=== PATIENT | male | born 1950 | race Caucasian/White ===

== ENCOUNTER 2017-04-23 07:39 | Day surgery (SDC) | payer MEDICARE, BC ==
[~2017-04-23] VITALS: Ht 172.7 cm; Wt 85.0 kg
[~2017-04-23 07:39] MED LIST: 1-ME1LIQ PO; ALLO100T PO; ECOT81TA2; ENAL10TA7 PO; EZET10; METO25 PO; NITR.4
[2017-04-23] MEDS ORDERED: IOHEXOL 350 MG/ML 100 ML BTL (for Cath Lab) OTHER ONE (07:40)
[2017-04-23] MEDS ORDERED: NS 1000P @30 MLS/HR (KVO) IV SCH (08:00)
[2017-04-23 08:21] VITALS: BP 135/76; PULSE 67; RESP 18; TEMP 97.7; O2SAT 98
[2017-04-23 08:23] LABS: AUTOMATED NEUTROPHIL # 2.9 TH/MM3 (1.8-7.7); BASOPHIL % 0.5 % (0.0-2.0); EOSINOPHIL # 0.4 TH/MM3 (0-0.4); EOSINOPHIL % 7.3 % (0.0-4.0); HEMATOCRIT 39.7 % (39.0-51.0); HEMO FLAGS DIFF FINAL; LYMPH % 23.8 % (9.0-44.0); LYMPHOCYTE # 1.2 TH/MM3 (1.0-4.8); MEAN CELL VOLUME 92.4 FL (80.0-100.0); MEAN CORPUSCULAR HEMOGLOBIN 32.4 PG (27.0-34.0); MONO % 9.2 % (0.0-8.0); NEUT % 59.2 % (16.0-70.0); PLATELET COUNT 160 TH/MM3 (150-450); RED BLOOD COUNT 4.29 MIL/MM3 (4.50-5.90); RED CELL DISTRIBUTION WIDTH 13.2 % (11.6-17.2); WHITE BLOOD COUNT 4.9 TH/MM3 (4.0-11.0)
[2017-04-23] MEDS ORDERED: ATOR10TA15 PO (08:24)
[2017-04-23] MEDS ORDERED: NITR0.4S SL (08:24)
[2017-04-23] MEDS ORDERED: ASPI81TA23 PO (08:24)
[2017-04-23] MEDS ORDERED: LORA0.5T PO (08:24)
[2017-04-23] MEDS ORDERED: CLOP75TA PO (08:24)
[2017-04-23] MEDS ORDERED: METO25TA3 PO (08:24)
[2017-04-23] MEDS ORDERED: ALLO100T PO (08:24)
[2017-04-23] MEDS ORDERED: ENAL10TA PO (08:24)
[2017-04-23 08:33] LABS: APTT (PATIENT) 29.4 SEC (24.3-30.1); PROTHROMBIN TIME - PATIENT 10.7 SEC (9.8-11.6)
[2017-04-23 08:41] LABS: BICARBONATE 28.5 MEQ/L (21.0-32.0); POTASSIUM 4.3 MEQ/L (3.5-5.1)
[2017-04-23] MEDS ORDERED: diphenhydrAMINE HCL 50 MG/ML VIAL IV PUSH ONE (09:30)
[2017-04-23] MEDS ORDERED: FAMOTIDINE 20 MG/2 ML VIAL IV PUSH ONE (09:30)
[2017-04-23] MEDS ORDERED: methylPREDNISolone SOD SUCC 125 MG/2 ML VIAL IV PUSH ONE (09:30)
[2017-04-23] MEDS ORDERED: HEPARIN-NS/PF INJ 1,000 ML ONE (10:33)
[2017-04-23] MEDS ORDERED: MIDAZOLAM HCL 2 MG/2 ML VIAL ONE (10:42)
[2017-04-23] MEDS ORDERED: HEPARIN SODIUM - IV 10,000 UNITS/10 ML VIAL ONE (11:47)
--- NOTE | 2017-04-23 12:23 | CATHPROC ---
[employer] HIS Report Study Information Study Number Admission Scheduled Start Study Start [id number] Apr 23 2017 7:39AM 04/23/2017 Apr 23 2017 10:28AM [place] [facility] Catheter[facility] Admit Source Facility Department Other [facility] - Associate Counsel Physician and Clinical Staff Initial Cuong Sanon Edge Inker Uppers Maddie Segovia,RN Recorder Christopher Connor,RT(R) Scrub Sal Russell RCIS(BS) Procedures Performed Procedure Location (Site) Vessel Name Coronary Angiograms LCA Left Coronary Coronary Angiograms RCA Right Coronary Coronary Angiograms SVG-OM CIRC Coronary Angiograms SVG-PDA Right Coronary Coronary Angiograms Gft. Stump 1 SVG Graft Coronary Angiograms WHELAN WHELAN L Heart Cath Wire insertion Fem Art (right) Femoral Art Equipment Time Environmental Services Manager Description Size Mfg Part Number Used/Scraped TRANSDUCER, TRUWAVE [id number] 10:43 Puuilo * Used W/FREDERICK *[id number] INTRODUCER SET, [id number] 11:10 [employer] FR 5 Used MICROPUNCTURE *[id number] 534-545T *[id number] 534-560T *[id number] 534-520T *[id number] 534-521T *[id number] 534-542T *[id number] 10:43 Maximum Balance Foundation PACK, CCL CUSTOM * Used *[id number] 11:48 MEDTRONIC/AVE EBU 3.5 Z2 GUIDE CATHETER FR 6 Used *[id number] 11:48 [employer] MEDICAL PACK, ANGIOPLASTY * [id number] Used [id number] 10:43 [employer] MEDICAL WIRE, 3MMJ .035 180CM 180CM Used *[id number] 10:43 NAMIC MANIFOLD, 4 PORT * Used *[id number] 10:43 NYCOMED OMNIPAQUE, 350 MG, 150ML 150ML [id number] Used [id number] 10:43 GOYAL MEDICAL BLANKET,WARM AIR CCL * Used *[id number] 10:45 TERUMO MEDICAL SHEATH, FR5 TERUMO (10CM) FR 5 Used *[id number] 11:46 TERUMO MEDICAL SHEATH, FR6 TERUMO (10CM) FR 6 Used *[id number] 11:49 [employer] PRIME WIRE, VERRATA 185CM 185CM 04297 *[id number] Used Equipment Model, Serial, Lot Number and Expiration Data Description Model Number Serial Number Lot Number Expiration Date PACK, ANGIOPLASTY [id number] 06-25-2019 PRIME WIRE, VERRATA 185CM [id number] 02-23-2020 History: Allergies Allergy Reaction iohexol Hives diatrizoate meglumine Hives gadoteridol Hives gadodiamide Hives iodixanol Hives gadobenic acid Hives History: Risk Factors Family History of Hypertension Dyslipidemia Premature CAD Yes Yes Yes Prior PCI Prior PCIDate Prior CABG Prior CABGDate Yes 02/27/2016 Yes 05/26/2006 Cerebrovascular Peripheral Artery Chronic Lung On Dialysis Diabetes Disease Disease Disease No No No No No History: Stress Tests Stress or Imaging Studies Performed Yes Standard Exercise Stress Test No Stress Echo No Stress Test SPECT Stress Test SPECT Result Stress Test SPECT Ischemia Risk/Extent Yes Positive Intermediate Stress Test CMR No Cardiac CTA Coronary Calcium Score No No History: Other Current Smoker No Labs Hgb (g/dl) Hct (%) WBC (l/cumm) Platelets (thousands) 11.60-17.00 35.00-51.00 4.00-11.00 150.00-450.00 13.9 39.7 4.9 160 Glucose (mg/dl) BUN (mg/dl) Creatinine (mg/dl) BUN:Creatinine (1:x) 74.00-106.00 7.00-18.00 0.50-1.30 10.00-20.00 101 11 0.9 12.2 Na (meq/l) K (meq/l) 136.00-145.00 3.50-5.10 139 4.3 INR (PTT:PT) 0.90-1.10 1 CPK-MB (ng/ML) 0.50-3.60 Not Drawn Medication Medication Total Dose (Bolus/Oral) Medication Total Dosage/Unit 1% XYLOCAINE 10 mL FENTANYL 25 mcg HEPARIN 6000 units PEPCID 20 mg VERSED 0.5 mg Medications (Bolus/Oral) Medication Time Given Dosage/Unit Administered By Reason 04/23/2017 10:33:33 PEPCID 20 mg Maddie Segovia AM 20 mg PEPCID given in lab by Maddie Segovia, RN via Peripheral IV. Ordered by Cuong Canales 04/23/2017 11:07:35 VERSED 0.5 mg Adamy, Maddie AM 0.5 mg VERSED given in lab by Maddie Segovia, AMIRA in Left Antecubital via Peripheral IV. Ordered by Cuong Singh 04/23/2017 11:08:50 FENTANYL 25 mcg Maddie Segovia AM 25 mcg FENTANYL given in lab by Maddie Segovia, AMIRA in Left Antecubital via Peripheral IV. Ordered by Cuong Canales 04/23/2017 11:08:54 1% XYLOCAINE 10 mL Cuong Canales AM 10 mL 1% XYLOCAINE given in lab by Cuong Canales in Right Groin via Subcutaneous. Ordered by Cuong Hudson 04/23/2017 11:50:02 HEPARIN 6000 units Maddie Segovia AM 6000 units HEPARIN given in lab by Maddie Segovia, AMIRA in Left Antecubital via Peripheral IV. Ordered by Cuong Canales Medication (Drip) Medication Time Given Dosage/Unit Concentration/Unit Diluent (ml) Solution 04/23/2017 10:41:35 IV Solutions 0 mL (IV) 500 NaCl .9 AM Patient arrived on IV Solutions in Left Antecubital via Peripheral IV. Pump/Drip Flow = 20 ml/hr usin g NaCl .9. Initial Case Assessment Cardiovascular HR Rhythm NIBP Chest Pain 80 SR 159/88 0 Edema Present Skin color Skin None Normal Warm Dry Circulatory - Right Pulses Dorsalis Pedis Femoral 2 2 Scale (0,1,2,3,4,d) Circulatory - Left Pulses Dorsalis Pedis Femoral 2 2 Scale (0,1,2,3,4,d) Neurological State Oriented to time-place- Alert Moves all extremities person Respiration - General Respiration Rate SpO2 (%) O2 (lpm) (B/min) 18 98 0 Final Case Assessment Cardiovascular HR Rhythm NIBP Chest Pain 67 sr 145/81 0 Edema Present Skin color Skin None Normal Warm Dry Circulatory - Right Pulses Dorsalis Pedis Femoral 2 2 Scale (0,1,2,3,4,d) Circulatory - Left Pulses Dorsalis Pedis Femoral 2 2 Scale (0,1,2,3,4,d) Neurological State Oriented to time-place- Alert Moves all extremities person Respiration - General Respiration Rate SpO2 (%) O2 (lpm) (B/min) 18 98 0 Chronological Log Time Study Chronological Log 10::33 Patient arrived via Bed. 10::35 Patient Name, D.O.B, / Armband Verified By R.N. 10::36 Consent signed by the physician and the patient and verified by the Associate Counsel staff. 10::37 Pre-op and post- op instructions given; patient acknowledges understanding of instructions. :33:33 20 mg PEPCID given in lab by Maddie Segovia RN via Peripheral IV. Ordered by Kelly Canales Vitals capture started with the following parameters, Patient=Adult, Interval=5 min, Initial Pr yxbixa=458 mmHg, 10:34:28 Deflation Rate=5 mmHg, Cuff placed on Left Arm 10:35:14 Vitals capture stopped. Vitals capture started with the following parameters, Patient=Adult, Interval=5 min, Initial Pr jlpoxm=495 mmHg, 10:35:44 Deflation Rate=5 mmHg, Cuff placed on Left Arm 10:36:27 HR=65 bpm, LUKR=103/88 mmhg, SpO2=98.0 %, Resp=7 B/min, Boyd=2 Assessment: Initial Case, HR=80 BPM, Rhythm=SR, MQSI=943/88 mmhg, Chest Pain=0, Edema=None, Col or=Normal, Skin = Warm, Dry Right Pulses: Dwayne Ped=2, Femoral=2 10:39:21 Left Pulses: Dwayne Ped=2, Femoral=2 Neurological: State=Alert, Ox3, ESTRADA Respiration: Resp=18 B/min, SpO2=98 %, O2=0 lpm 10:39:26 Reference ECG taken 10:41:11 A # 20 IV was noted in the Antecubital (left). Grade = 0 10:41:26 HR=64 bpm, BPBV=226/75 mmhg, SpO2=99.0 %, Resp=15 B/min, Boyd=2 10:41:35 Patient arrived on IV Solutions in Left Antecubital via Peripheral IV. Pump/Drip Flow = 20 ml/hr using NaCl .9. 10:42:06 History and physical on the chart or being dictated. 10:42:16 Bilateral groins prepped with 2% chlorhexidine, and draped after a 3 minute waiting time. 10:46:19 HR=63 bpm, DJSV=524/88 mmhg, SpO2=98.0 %, Resp=14 B/min, Boyd=2 10:47:11 Pressure channel 1 zeroed. 10:51:22 HR=63 bpm, NVMT=147/79 mmhg, SpO2=97.0 %, Resp=16 B/min, Boyd=2 10:56:22 HR=62 bpm, MECW=820/79 mmhg, SpO2=97.0 %, Resp=15 B/min, Boyd=2 10:57:14 MD arrived. 11:01:21 HR=61 bpm, PDHE=443/80 mmhg, SpO2=97.0 %, Resp=13 B/min, Boyd=2 11:02:03 MD arrived. 11:06:24 HR=67 bpm, PEQI=719/78 mmhg, SpO2=96.0 %, Resp=15 B/min, Boyd=2 Time Out. Correct patient, correct procedure, correct physician, power injector not loaded with contrast with surgical 11:06:45 team present. Time Out Concurred by MD and individual staff in procedure. Not loaded at this ti me. 11:07:33 Presedation re-assessment performed by Associate Counsel RN. 11:07:34 Case Start 0.5 mg VERSED given in lab by Maddie Segovia, AMIRA in Left Antecubital via Peripheral IV. Ordere d by Cuong Canales 11:07:35 G. 25 mcg FENTANYL given in lab by Maddie Segovia, RN in Left Antecubital via Peripheral IV. Orde red by Parker, 11:08:50 Cuong Geronimo. 10 mL 1% XYLOCAINE given in lab by Cuong Canales in Right Groin via Subcutaneous. Ordered by Parker, 11:08:54 Cuong Geronimo. 11:09:15 Access site was Right Femoral Artery. 11:09:21 A INTRODUCER SET, MICROPUNCTURE FR 5 was advanced into the Fem Art (right) using the Percut aneous technique. A SHEATH, FR5 TERUMO (10CM) FR 5 was exchanged in the Fem Art (right). This was necessary in or ravindra to 11:09:53 accomodate a larger catheter. 11:11:23 HR=65 bpm, IRMO=333/74 mmhg, SpO2=97.0 %, Resp=11 B/min, Boyd=2 Recorded Pressure: FA, HR=65, Condition=Condition 1 11:15:07 (Femoral Artery) FA 146/64/94 11:15:25 An injection in the Groin (right) was made through the SHEATH, FR5 TERUMO (10CM) FR 5. 11:16:20 HR=67 bpm, CSMG=353/82 mmhg, SpO2=96.0 %, Resp=11 B/min, Boyd=2 Recorded Pressure: LV, HR=65, Condition=Condition 1 11:18:09 (Left Ventricle) LV 157/7/22 Recorded Pressure: LV, HR=64, Condition=Condition 1 11:18:30 (Left Ventricle) LV 129/8/14 Recorded Pressure: LV, Ao, HR=67, Condition=Condition 1 11:18:45 (Left Ventricle) LV 147/7/19, (Aorta) Ao 145/69/102 Recorded Pressure: Ao, HR=64, Condition=Condition 1 11:19:52 (Aorta) Ao 132/67/96 11:20:41 The RCA was injected and visualized at various angles. OMNIPAQUE, 350 MG, 150ML 150ML used . 11:21:25 HR=67 bpm, FRJA=168/77 mmhg, SpO2=96.0 %, Resp=8 B/min, Boyd=2 After removing the current catheter a MISTY INFINITI CATHETER FR 5 was advanced over a WIRE, 3MMJ .035 180CM 11:23:51 180CM. 11:25:50 The WHELAN was injected and visualized at various angles. OMNIPAQUE, 350 MG, 150ML 150ML used . 11:26:24 HR=69 bpm, QXMP=907/85 mmhg, SpO2=95.0 %, Resp=14 B/min, Boyd=2 After removing the current catheter a JL 4.0 INFINITI CATHETER FR 5 was advanced over a WIRE, 3 MMJ .035 180CM 11:26:47 180CM. 11:28:29 The LCA was injected and visualized at various angles. OMNIPAQUE, 350 MG, 150ML 150ML used . 11:31:23 HR=70 bpm, CUAG=043/84 mmhg, SpO2=97.0 %, Resp=14 B/min, Boyd=2 After removing the current catheter a AL 1 INFINITI CATHETER FR 5 was advanced over a WIRE, 3MM J .035 180CM 11:35:00 180CM. 11:35:15 The Gft. Stump 1 was injected and visualized at various angles. OMNIPAQUE, 350 MG, 150ML 15 0ML used. 11:36:24 HR=64 bpm, RPIA=160/79 mmhg, SpO2=97.0 %, Resp=12 B/min, Boyd=2 11:36:50 The SVG-OM was injected and visualized at various angles. OMNIPAQUE, 350 MG, 150ML 150ML us ed. 11:41:27 HR=70 bpm, JVZN=429/80 mmhg, SpO2=96.0 %, Resp=14 B/min, Boyd=2 After removing the current catheter a MPA-2 INFINITI CATHETER FR 5 was advanced over a WIRE, 3M MJ .035 180CM 11:44:00 180CM. 11:44:06 The SVG-PDA was injected and visualized at various angles. OMNIPAQUE, 350 MG, 150ML 150ML u sed. 11:46:26 HR=77 bpm, EPFN=610/85 mmhg, SpO2=96.0 %, Resp=14 B/min, Boyd=2 11:46:46 Catheter was removed A SHEATH, FR6 TERUMO (10CM) FR 6 was exchanged in the Fem Art (right). This was necessary in or ravindra to 11:46:53 accomodate a larger catheter. A EBU 3.5 Z2 GUIDE CATHETER FR 6 was advanced over a wire. OMNIPAQUE, 350 MG, 150ML 150ML was u sed for 11:48:53 injections. 6000 units HEPARIN given in lab by Maddie Segovia, RN in Left Antecubital via Peripheral IV. O rdered by Parker, 11:50:02 Cuong Valiente 11:51:25 HR=66 bpm, QCXY=949/82 mmhg, SpO2=93.0 %, Resp=15 B/min, Boyd=2 11:54:32 A PRIME WIRE, VERRATA 185CM 185CM was inserted via Fem Art (right). 11:56:26 HR=69 bpm, KTIM=316/83 mmhg, SpO2=95.0 %, Resp=15 B/min, Boyd=2 11:57:42 Interventional wire has crossed the lesion 11:58:45 Flow Wire was was placed in the CIRC Prox. The FFR measures ~FFR~ percent. The IFR measures 0.98 Percent. 12:00:59 Wire removed 12:01:01 Catheter was removed 12:01:27 HR=67 bpm, UTDY=333/81 mmhg, SpO2=94.0 %, Resp=14 B/min, Boyd=2 12:02:08 Case End Assessment: Final Case, HR=67 BPM, Rhythm=sr, CFWQ=883/81 mmhg, Chest Pain=0, Edema=None, Color =Normal, Skin = Warm, Dry Right Pulses: Dwayne Ped=2, Femoral=2 12:03:12 Left Pulses: Dwayne Ped=2, Femoral=2 Neurological: State=Alert, Ox3, ESTRADA Respiration: Resp=18 B/min, SpO2=98 %, O2=0 lpm 12:03:35 Catheter(s) removed without difficulty 12:03:42 Sterile dressing applied to site 12:03:44 No case complications noted. 12:03:46 Cine recording checked. 12:04:00 Bedside Report will be given. 12:04:50 Activated Clotting Time Drawn 12:05:09 In the Fem Art (right) the SHEATH, FR6 TERUMO (10CM) FR [address] by Cuong Canales 12:05:28 Contrast Scanned 12:06:50 A Left Heart Cath was performed. 12:06:57 HR=68 bpm, ITSP=579/79 mmhg, SpO2=97.0 %, Resp=7 B/min, Boyd=2 12:09:30 ACT (Normal Range 90-180) = 268 12:11:30 HR=76 bpm, FZGU=609/87 mmhg, SpO2=95.0 %, Resp=18 B/min, Boyd=2 12:13:19 Vitals capture stopped. 12:19:11 Patient moved to [facility] End Study - Contrast Media Used In Study Contrast Total Opened (mL) Total Used (mL) Total Wasted (mL) Omnipaque 85 85 0 End Study - Maximum Contrast Load Max Contrast Load (mL) 472.2 End Study - Radiation Exposure Fluoro Time (minutes) 12.7 End Study - Patient Disposition Complications Transferred To Telemetry Bed
[2017-04-23] MEDS ORDERED: ATROPINE SULFATE 1 MG/ML VIAL IV PUSH PRN (12:30)
[2017-04-23] MEDS ORDERED: ONDANSETRON HCL 4 MG/2 ML VIAL IV PUSH PRN (12:30)
[2017-04-23] MEDS ORDERED: SODIUM CHLOR 0.9% 250 ML INJ 250 ML IV PRN (12:30)
[2017-04-23] MEDS ORDERED: MISC INFORMATION XX ONE (12:30)
--- NOTE | 2017-04-23 12:57 | EKG ---
Date Performed: 04/23/2017 Time Performed: 08:37:16 PTAGE: 66 years EKG: Sinus rhythm Lateral ST-T changes are nonspecific Borderline ECG No significant change from prior electrocardiogr am. PREVIOUS TRACING : 02/28/2016 05.23 DOCTOR: Herbert Raza Interpretating Date/Time 04/23/2017 12:56:19
[2017-04-23] MEDS ORDERED: hydrALAZINE HCL 20 MG/ML VIAL ONE (14:02)
[2017-04-23] MEDS ORDERED: hydrALAZINE HCL 20 MG/ML VIAL IV PUSH ONE (14:15)
--- NOTE | 2017-04-24 00:48 | MA ---
cc: CUONG CANALES DO DATE OF PROCEDURE 04/23/17 PROCEDURE Left heart catheterization, coronary angiogram, bypass angiogram, IFR left circumflex, moderate sedation 60 minutes. PREPROCEDURE DIAGNOSIS Shortness of breath, possible anginal equivalent, history of CABG x five, abnormal stress test. POSTPROCEDURE DIAGNOSIS Coronary artery disease, history of CABG x5 (3/5 patent). MEDICATIONS 1. Solu-Medrol 125 milligrams. 2. Pepcid 20 milligrams. 3. Benadryl 25 milligrams. 4. Versed 0.5 milligrams. 5. Fentanyl 25 micrograms. 6. Heparin 6000 units. CONTRAST USED 85 cc. FLUOROSCOPY 12.7 minutes. MODERATE SEDATION 60 minutes. ESTIMATED BLOOD LOSS 20 cc. PROCEDURAL SUMMARY Malik Huitron is a pleasant 66-year-old male who sees my partner, Dr. Curry, in the office and had significant shortness of breath and so underwent stress testing. He was found to have lateral ischemia and because of this recommended cardiac catheterization. Risks, benefits and alternatives were explained to him and he consented as such. He was brought to lab and prepped in the usual sterile fashion. Right femoral artery was accessed using a modified Seldinger technique and placement of a 5-Yoruba sheath. This was easily aspirated and flushed. A JR-4 was advanced over a J-wire to the ascending aorta and across the aortic valve for measurement of left ventricular pressure. This was pulled back across the aortic valve showing no significant gradient of aortic stenosis. JR-4 was used for selective angiography of the right coronary artery system. I was unable to engage any of the vein grafts with the RCA and so this was then advanced for selective angiography of the WHELAN to the LAD. This was exchanged out for a JL-4 which was used for selective angiography of the left coronary artery system. This was then exchanged for an AL-1 which was used for selective angiography of the SVG to OM1 and SVG to OM2. This was then exchanged for a multipurpose which was used for selective angiography of the SVG to RCA. The SVG to the diagonal is known to be occluded from previous angiogram. Because of moderate lesion noted in the left circumflex where a previous stent was placed as well as lateral ischemia on stress testing I felt that this needed to be further evaluated. Sheath was exchanged for a 6-Yoruba sheath. The patient was given heparin as an anticoagulant. An EBU 3.5 guide was then engaged in the left main. FFR wire was advanced into the distal left circumflex. Measurement of IFR was 0.98 showing nonsignificant stenosis. Guide wire was removed and final angiogram showed no disruption of coronary vasculature. Sheath was sutured in place with a plan to remove once ACT values were appropriate. The patient left the laborer beam house cardiovascularly stable. FINDINGS Left main: Normal size vessel with adequate reflux which bifurcates into an LAD and circumflex. LAD: 100% occlusion in the proximal portion. Left circumflex: Small to moderate size vessel with patent stent noted in the proximal portion. There appears to be a 40% lesion at the proximal portion of the previous stent. It gives off one major obtuse marginal which is overall a small vessel with 30% disease. RCA: 100% occluded in the proximal portion. WHELAN to LAD: Patent with overall good runoff to a small LAD. It appears to retrogradely fill into the first diagonal. SVG to OM1: Occluded. SVG to OM two: Is patent with no significant disease. SVG to diagonal: Known occluded. SVG to RCA: Patent and retrogradely fills an RV branch. IMPRESSION 1. Coronary artery disease with a history of CABG x5 (3/5 grafts patent). 2. Abnormal stress test most likely false positive. 3. Shortness of breath. RECOMMENDATIONS 1. Mr. Huitron underwent cardiac catheterization due to his shortness of breath and abnormal stress test. In comparison to his previous cardiac catheterization 1 year ago he does not seem to have progression of his disease and continues to have 3/5 grafts patent as well as his stent placed in the left circumflex. 2. He will be recommended continued medical management. 3. He will be discharged home today for followup with Dr. Curry. 4. Further recommendations will be made based on the hospital course. Thank you for allowing me to see Mr. Huitron. If there are any questions please do not hesitate to call. Cuong Canales DO VGP/EO /11:53 PM /12:26 AM
== END 2017-04-23 19:51 | disposition home or self-care (01) ==
LOC: HDOC 07:39 → HDIC 07:40 → HDOC 19:51
PROVIDERS: ATTEND Nuclear Medicine Nuclear Cardiology
DX: I25.10 Atherosclerotic heart disease of native coronary artery without angina pectoris (principal); I10 Essential (primary) hypertension; E78.00 Pure hypercholesterolemia, unspecified; Z95.1 Presence of aortocoronary bypass graft
CPT/HCPCS: 80048; 85002; 85025; 85610; 85730; 93005; 93459; 93571; 99152; 99153; C1769; C1887; C1893; J0360; J1200; J1644; J2250; J2930; J3010; J7030; Q9967